=== PATIENT | male | born 1985 ===

== ENCOUNTER 2023-01-04 17:06 | Emergency (ER) | payer MEDICARE, MEDICAID, SELFPAY ==
[2023-01-04 17:09] VITALS: BP 129/75; PULSE 115; RESP 16; TEMP 36.9; O2SAT 98; BMI 23.9
--- NOTE | 2023-01-04 17:10 | ED.GENADULT ---
HPI - General Adult General Chief complaint: Dental/Oral Stated complaint: Dental pain Time Seen by Provider: 01/04/23 17:10 Source: patient, RN notes reviewed and old records reviewed Mode of arrival: ambulatory Limitations: no limitations History of Present Illness HPI narrative: 37-year-old male presents for evaluation of left-sided dental pain. He reports he has had issues on and off for 2 years and has been following with his dentist He was referred to a specialist for dental extraction in April He states over last 2 weeks his pain has worsened in the left lower most posterior molar His pain is 8/10, stabbing. Denies any fevers, chills Related Data Previous Rx's Medication Instructions Recorded amoxicillin 500 mg tablet 500 mg PO TID #21 tabs 01/04/23 tramadol 50 mg tablet 50 mg PO TID PRN severe pain 01/04/23 (scale score 7-10) #10 tabs Allergies Allergy/AdvReac Type Severity Reaction Status Date / Time banana Allergy Unconscious Verified 01/04/23 17:09 Review of Systems Constitutional: Constitutional: Denies chills and Denies fever(s) ENT: Reports facial pain and Reports mouth pain PMFSH Social History Social History Advance Directives: No Advance Directives Information Provided: No Physical Exam ED Vital Signs: Vital Signs - 24 hr 01/04/23 17:09 Temperature 98.5 F Pulse Rate 115 H Respiratory Rate 16 Blood Pressure 129/75 Pulse Oximetry 98 Oxygen Delivery Method Room Air BMI result Body Mass Index 23.9 Const General: healthy appearing, comfortable, no acute distress, alert and awake Nutritional Appearance: well nourished Orientation/consciousness: patient oriented x3 HENMT Other: Patient has a dental fracture to the left lower most posterior molar. Minimal erythema, no obvious edema or dental abscess Head: Yes normocephalic and Yes atraumatic Eyes Eyelids: Yes eyelids normal Conjunctivae: conjunctivae normal Sclerae: sclerae normal Corneas: corneas normal Pupils: Equal, round and reactive pupils present EOM: EOMs intact bilaterally Neck Neck: Yes full ROM Resp Effort & Inspection: normal respiratory effort, able to speak in complete sentences and not labored Skin General skin exam: elasticity normal Neuro General: patient oriented x3 Cranial nerves: Yes Equal, round and reactive pupils present and Yes Bilaterally intact EOM present Cognition (Neuro): normal cognition Extrem Other: Moving all extremities well without any obvious deformities Medical Decision Making Medical Decision Making MDM Narrative: 37-year-old male presents for evaluation of dental caries and left facial pain. He has a known dental fracture, likely developing infection, will treat his pain with amoxicillin and tramadol. He has outpatient follow-up already scheduled Differential Diagnosis Differential Diagnoses: The differential diagnosis associated with the presentation includes Dental pain Atypical facial pain Dental abscess Dental caries Discharge Plan Discharge Clinical Impression: Toothache, Atypical facial pain Patient Disposition: Home, Self-Care Instructions: Toothache (ED) Additional Instructions: Take the antibiotic 3 times daily for the next 7 days. Use ibuprofen and/or Tylenol for pain. You may also use [id number] Orajel Use tramadol for severe or breakthrough pain. This may make you sleepy, did not drink alcohol or drive after taking it Follow-up with your dentist as well Prescriptions: New amoxicillin 500 mg tablet 500 mg PO TID Qty: 21 0RF tramadol 50 mg tablet 50 mg PO TID PRN (Reason: severe pain (scale score 7-10)) Qty: 10 0RF
== END 2023-01-04 17:27 | disposition home or self-care (01) ==
PROVIDERS: Emergency Provider Emergency Medicine
DX: K08.89 Other specified disorders of teeth and supporting structures (principal); G50.1 Atypical facial pain
CPT/HCPCS: 99282; 99283

== ENCOUNTER 2023-02-15 13:37 | Emergency (ER) | payer MEDICARE, MEDICAID, SELFPAY ==
[2023-02-15 14:23] VITALS: BP 109/66; PULSE 60; RESP 18; TEMP 36.8; O2SAT 99; BMI 22.1
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
[2023-02-15 14:51] LABS: MANUAL DIFF FLAG NO
[2023-02-15 14:54] LABS: Appearance Urine Cloudy; Color Urine Dark Yellow; Glucose Urine UA Negative (Negative); Leukocyte Esterase Urine Small (1+) (Negative); Nitrite Urine Negative (Negative); PH 7.5 (5.0-9.0); Specific Gravity - Urine 1.025 (1.005-1.025); UMIC TRIGGER UACC YES; Urine Blood Large (3+) (Negative); Urine Ketones 15 mg/dL (Negative); Urine Protein Trace mg/dL (Neg-Trace)
[2023-02-15 14:56] LABS: Basophils Percent Auto 0.6 % (0-2); Eosinophils Percent Auto 0.4 % (0-4); Hemoglobin 14.6 g/dl (14.0-18.0); Lymphocytes Absolute Auto 2.2 X10*3/uL (1.2-4.9); Lymphocytes Percent Auto 45.7 % (20-40); Mean Corpuscular HGB Conc 33.2 g/dl (31.0-36.0); Mean Corpuscular Hemoglobin 29.6 pg (27.0-33.0); Mean Corpuscular Volume 89.1 fL (80.0-98.0); Mean Platelet Volume 10.8 fL (9.4-12.4); Monocytes Absolute Auto 0.3 X10*3/uL (0.1-1.2); Monocytes Percent Auto 5.7 % (2-11); Neutrophils Absolute Auto 2.3 x10*3/uL (2.0-8.3); Neutrophils Percent Auto 47.6 % (45-73); Platelet Count 213 X10*3/uL (160-400); Red Blood Count 4.94 X10*6/uL (4.60-5.80); White Blood Count 4.9 X10*3/uL (4.8-10.8)
[2023-02-15 15:02] LABS: Bacteria Urine None Seen (None Seen); Hyaline Casts Urine 0-2 /LPF (0-2); RBC Urine >20 /HPF (0-2); Squamous Epithelial Cell Urine 0-2 /HPF (0-2); UACC Culture Trigger YES
[2023-02-15 15:04] LABS: Anion Gap 11 (12-20); Blood Urea Nitrogen 5 mg/dL (9-16); Calcium 8.9 mg/dL (8.4-10.2); Carbon Dioxide 28 mmol/L (22-29); Chloride 108 mmol/L (96-108); Creatinine Clr Calc Pharmacy 99.4; Estimated Glomerular Filt Rate > 60; Glucose Random 87 mg/dL (60-115); Potassium 3.7 mmol/L (3.3-5.1); Sodium 143 mmol/L (135-145)
== END 2023-02-15 17:45 | disposition home or self-care (01) ==
PROVIDERS: Physician Assistant; Emergency Provider Emergency Medicine
DX: S30.812A Abrasion of penis, initial encounter (principal); R31.9 Hematuria, unspecified; X58.XXXA Exposure to other specified factors, initial encounter; Y93.9 Activity, unspecified; Y92.9 Unspecified place or not applicable; Y99.9 Unspecified external cause status
CPT/HCPCS: 36415; 80048; 81001; 85025; 87086; 99282; 99283

== ENCOUNTER 2023-03-10 05:49 | Emergency (ER) | payer MEDICARE, MEDICAID, SELFPAY ==
[2023-03-10 06:02] VITALS: BP 149/96; PULSE 112; RESP 20; TEMP 36.6; O2SAT 100; BMI 23.6
[2023-03-10 08:23] VITALS: BP 137/79; PULSE 64; RESP 18; TEMP 36.8; O2SAT 99
--- NOTE | 2023-03-10 08:23 | PC.NURSE ---
patient a&ox3, c/o 12/18 left jaw pain, vss, pt awaiting provider evaluation, call marmolejo within reach, will continue to monitor
--- NOTE | 2023-03-10 08:32 | ED_ITS ---
HPI - Dental/Oral General Chief complaint: Dental/Oral Stated complaint: dental pain Time Seen by Provider: 03/10/23 08:31 Source: patient and old records reviewed Mode of arrival: ambulatory Limitations: no limitations History of Present Illness HPI Narrative: 37 yo male with no sig PMH here with chronic L lower impacted wisdom tooth pain no abscess no fevers - has been on amoxicillin, motrin, tylenol without relief. He did have a dentist but needs to find a new one MD Complaint: tooth pain Location: Tooth # (17) Onset (ago): week(s) Duration: intermittent Severity: severe Relieving factors: nothing Exacerbating factors: chewing, cold, heat and drinking fluids Context: other Associated symptoms: gum swelling Treatment prior to arrival: topical analgesic, oral analgesic and other Related Data Previous Rx's Medication Instructions Recorded amoxicillin 500 mg tablet 500 mg PO TID #21 tabs 01/04/23 amoxicillin 875 mg-potassium 1 tab PO BID #14 tabs 03/10/23 clavulanate 125 mg tablet hydrocodone 5 mg-acetaminophen 325 1 tab PO Q6H PRN pain #10 tabs 03/10/23 mg tablet Allergies Allergy/AdvReac Type Severity Reaction Status Date / Time banana Allergy Unconscious Verified 03/10/23 06:01 Review of Systems Review of Systems: Constitutional : No Fever, No Chills ENT/Mouth : No swallowing difficulty, no change in voice, positive dental pain, positive jaw pain, no facial swelling Eyes: No Eye Pain, No Swelling Cardiovascular : No Chest Pain, No SOB Respiratory : No Cough, No Sputum Gastrointestinal : No Nausea, No Vomiting, No Diarrhea Genitourinary : No Dysuria Musculoskeletal : No Myalgias Skin : No rash Neuro : No Weakness, No Numbness, No Headache PMFSH Past Medical History Source: old records reviewed Medical History Toothache Social History Social History (Updated 03/10/23 @ 08:34 by Yuko Huggins DO) Patient Tobacco Use Status: Tobacco use Unknown Physical Exam Vital Signs: Vital Signs: Last Vital Signs Temp 98.2 F 03/10/23 08:23 Pulse 64 03/10/23 08:23 Resp 18 03/10/23 08:23 BP 137/79 03/10/23 08:23 Pulse Ox 99 03/10/23 08:23 O2 Del Method Room Air 03/10/23 08:23 BMI result Body Mass Index 23.6 Appearance: Alert. Oriented X3. No acute distress. Eyes: Pupils equal, round and reactive to light. ENT: Pharynx normal. no trismus L lower molar impacted decay on top ?exposed root no fluctuance or abscess no sublingual or submandibular ttp / swelling Neck: Normal inspection. Neck supple. CVS: Normal heart rate and rhythm. Pulses normal. Respiratory: No respiratory distress. Breath sounds normal. Abdomen: Soft and nontender. Skin: Skin warm and dry. Normal skin color. Normal skin turgor. Extremities: No lower extremity edema. Neuro: Oriented X 3. No motor deficit. No sensory deficit. Medical Decision Making Medical Decision Making MDM Narrative: 37 yo male with chronic L left lower impacted wisdom tooth here with decay and ?exposed root there is no abscess no trismus no sublingual or submandibular swelling he is already on tramadol, motrin and amoxicillin without relief. He will be given short course of hydrocodone, switch to augmentin and refer to dentist Differential Diagnosis Differential Diagnoses: The differential diagnosis associated with the prese ntation includes toothache, impacted wisdom tooth Admission/Observation Consideration of admission/observation: Escalation of care including admission/observation considered no signs of deeper space infection can be managed as outpatient External Record Review External record reviewed: Inpatient record Prescription Management I considered prescription management with: Pain Medication and Antibiotic Discharge Plan Discharge Clinical Impression: Toothache Patient Disposition: Home, Self-Care Instructions: Toothache (ED) Additional Instructions: return for worsening pain, fevers, facial swelling or any other concerns. please follow up with a dentist STOP TAKING AMOXICILLIN AND START NEW ANTIBIOTIC On amoxicillin-clavulanate, softer bowel movements are to be expected. Call your provider if you move your bowels more than 4 times a day, your bowel movements are almost all liquid, or you get a rash.? Prescriptions: New amoxicillin-pot clavulanate 875-125 mg tablet 1 tab PO BID Qty: 14 0RF hydrocodone-acetaminophen 5-325 mg tablet 1 tab PO Q6H PRN (Reason: pain) Qty: 10 0RF Rx Instructions: partial fill okay; Partial Fill upon patient request. Discontinued tramadol 50 mg tablet 50 mg PO TID PRN (Reason: severe pain (scale score 7-10)) Qty: 10 0RF No Action amoxicillin 500 mg tablet 500 mg PO TID Qty: 21 0RF
== END 2023-03-10 08:47 | disposition home or self-care (01) ==
PROVIDERS: Emergency Provider Emergency Medicine
DX: K08.89 Other specified disorders of teeth and supporting structures (principal)
CPT/HCPCS: 99283; 99284

== ENCOUNTER 2023-03-17 16:13 | Emergency (ER) | payer MEDICARE, MEDICAID, SELFPAY ==
[2023-03-17 16:31] VITALS: BP 123/82; BP 150/102; PULSE 102; PULSE 111; RESP 18; TEMP 37.1; O2SAT 97; O2SAT 99; BMI 22.6
--- NOTE | 2023-03-17 16:56 | ED.GENADULT ---
HPI - General Adult General Chief complaint: Dental/Oral Stated complaint: tooth pain Time Seen by Provider: 03/17/23 16:50 Source: patient Mode of arrival: ambulatory Limitations: no limitations History of Present Illness HPI narrative: 37 yold male presents to the ED for left wisdom tooth for a couple of days. Patient denies any facial sweling, neck sweling, fever, chills, nausea, vomitting, headache, or recent trauma. Related Data Previous Rx's Medication Instructions Recorded amoxicillin 500 mg tablet 500 mg PO TID #21 tabs 01/04/23 amoxicillin 875 mg-potassium 1 tab PO BID #14 tabs 03/10/23 clavulanate 125 mg tablet hydrocodone 5 mg-acetaminophen 325 1 tab PO Q6H PRN pain #10 tabs 03/10/23 mg tablet amoxicillin 875 mg-potassium 1 tab PO Q12H 10 days #20 tabs 03/17/23 clavulanate 125 mg tablet naproxen 500 mg tablet 500 mg PO BID PRN pain 7 days #14 03/17/23 tabs Allergies Allergy/AdvReac Type Severity Reaction Status Date / Time banana Allergy Unconscious Verified 03/10/23 06:01 Review of Systems Review of Systems: left wisdom tooth pain Yes all other systems are reviewed and are negative PMFSH Past Medical History Onset Date is defined in the Problem List Problems that require an onset date and time if occurred within 24 hrs of arrival to the ED Aortic Dissection and Rupture; Neurologic impairment; Cardiopulmonary Arrest; Endotracheal Intubation; Insertion or Replacement of Mechanical Circulatory Assist Device Medical History Toothache Social History Social History (Updated 03/10/23 @ 08:34 by Yuko Huggins DO) Patient Tobacco Use Status: Tobacco use Unknown Advance Directives: No Advance Directives Information Provided: No Physical Exam ED Vital Signs: Vital Signs - 24 hr 03/17/23 16:31 Temperature 98.7 F Pulse Rate 111 H Respiratory Rate 18 Blood Pressure 123/82 Pulse Oximetry 97 Oxygen Delivery Method Room Air BMI result Body Mass Index 22.6 Const General: cooperative, healthy appearing, comfortable, no acute distress, well developed, alert, awake and Physically active Orientation/consciousness: oriented to person, oriented to place, oriented to time and patient oriented x3 HENMT Other: negative for any facial swelling, neck swelling, drooling, change in voice, or hoarsness Head: Yes normal to inspection, Yes No palpable skull fracture present, Yes normocephalic and Yes atraumatic Teeth image: 1. cracked with yellow collection. negative for trismus. negative for gum swelling, fluctlunace, erythema Eyes General: appearance normal, both eyes and all related structures Neck Neck: Yes normal visual inspection, Yes full ROM, Yes no lymphadenopathy, Yes no meningeal signs, Yes trachea midline, Yes supple, No anterior neck swelling and No tender Chest Chest palpation & inspection: normal inspection of the chest and normal palpation of entire chest wall Resp Effort & Inspection: normal respiratory effort and able to speak in complete sentences Auscultation: clear to auscultation bilaterally Cardio Jugular venous distension: no JVD Heart sounds: S1 normal heart sound present and S2 normal heart sound present GI Inspection: Yes normal to inspection Palpation (GI): Soft to palpation, not firm, nontender, no guarding and not rigid General: Yes no CVA tenderness Back/Spine/Pelvis Back: no CVA tenderness and No back tenderness Skin General skin exam: no rashes or lesions noted, elasticity normal and turgor normal Neuro General: oriented to person, oriented to place, oriented to time, patient oriented x3, gait normal, tone normal, moves all extremities, Normal light touch and pain sensation, no meningeal signs, no focal motor deficits, CN's II-XI intact bilaterally and normal sensation to monofilament Extrem General: Yes normal to inspection, Yes full ROM, Yes capillary refill normal and Yes normal exam except as noted Psych Appearance: grossly normal, well kempt and not disheveled Course Course Course Narrative: RME: 37 yold male presents to the ED for left wisdom tooth pain. has yellow collection. no facial/neck swelling. Medical Decision Making Medical Decision Making MDM Narrative: 37 yold male presents to the ED for left lower wisdom tooth pain. Patient denies any facial swelling, neck swelling, fever, chills, recent trauma, drooling, trismus, hoarsness change in voice, or recent dental work. NOt suspecting génesis angina, peritonsilalr abscess, retropharygneal absces, or gum abscess. Differential Diagnosis Differential Diagnoses: The differential diagnosis associated with the presentation includes (toothache, dental carries, ) External Record Review External record reviewed: Other (prior visists) Prescription Management I considered prescription management with: Pain Medication and Antibiotic Discharge Plan Discharge Clinical Impression: Toothache Patient Disposition: Home, Self-Care Instructions: Toothache (ED) Additional Instructions: Return to the ED immediately for any facial swelling, neck swelling, drooling, change in voice, chest pain, shortness of breath, fever, chills, worsening toothache, or any other concerning symptoms. Please follow-up with your dentist. Prescriptions: New amoxicillin-pot clavulanate 875-125 mg tablet 1 tab PO Q12H 10 Days Qty: 20 0RF naproxen 500 mg tablet 500 mg PO BID PRN (Reason: pain) 7 Days Qty: 14 0RF No Action amoxicillin 500 mg tablet 500 mg PO TID Qty: 21 0RF amoxicillin-pot clavulanate 875-125 mg tablet 1 tab PO BID Qty: 14 0RF hydrocodone-acetaminophen 5-325 mg tablet 1 tab PO Q6H PRN (Reason: pain) Qty: 10 0RF Rx Instructions: partial fill okay; Partial Fill upon patient request. Stand Alone Forms: Work/School Release Interventions: ED Discharge Assessment Last Done: 03/17/23 17:11 Discharge Date/Time: 03/17/23 17:12 Print Language: Trinidadian
== END 2023-03-17 17:12 | disposition home or self-care (01) ==
PROVIDERS: Emergency Provider Student in an Organized Health Care Education/Training Program
DX: K08.89 Other specified disorders of teeth and supporting structures (principal)
CPT/HCPCS: 99282; 99283

== ENCOUNTER 2023-03-30 21:13 | Emergency (ER) | payer MEDICARE, MEDICAID, SELFPAY ==
[2023-03-30 21:15] VITALS: BP 123/89; PULSE 62; RESP 18; TEMP 36.9; O2SAT 99; BMI 22.3
--- NOTE | 2023-03-30 21:55 | ED_ITS ---
HPI - General Adult General Chief complaint: Dental/Oral Stated complaint: painful tongue, dental extraction 03/27 Time Seen by Provider: 03/30/23 21:55 Source: patient Mode of arrival: ambulatory Limitations: no limitations History of Present Illness HPI narrative: 37-year-old male with no significant past medical history presents emergency department with complaints of burning to his tongue. He states he had a recent dental extraction on 03/27 and sustained a laceration to the left side of his tongue during the procedure. He states he began using saltwater rinses in addition to mouthwash the following day. He states yesterday, 03/29/2023 that is symptoms of burning tongue began. He describes the pain as if the tongue is on fire like someone is pulling a hot sauce on it. He states he used mouthwash 4 times yesterday. He denies any oral swelling or edema, trismus or jaw pain, dysphagia, aphasia, or change in phonation, fever or chills Pertinent positives and negatives discussed in HPI Related Data Previous Rx's Medication Instructions Recorded amoxicillin 500 mg tablet 500 mg PO TID #21 tabs 01/04/23 amoxicillin 875 mg-potassium 1 tab PO BID #14 tabs 03/10/23 clavulanate 125 mg tablet hydrocodone 5 mg-acetaminophen 325 1 tab PO Q6H PRN pain #10 tabs 03/10/23 mg tablet amoxicillin 875 mg-potassium 1 tab PO Q12H 10 days #20 tabs 03/17/23 clavulanate 125 mg tablet naproxen 500 mg tablet 500 mg PO BID PRN pain 7 days #14 03/17/23 tabs Allergies Allergy/AdvReac Type Severity Reaction Status Date / Time banana Allergy Unconscious Verified 03/10/23 06:01 Review of Systems 2 Review of Systems: Yes all other systems are reviewed and are negative PMFSH Past Medical History Attestation statement: The following information was validated with the patient. Onset Date is defined in the Problem List Problems that require an onset date and time if occurred within 24 hrs of arrival to the ED Aortic Dissection and Rupture; Neurologic impairment; Cardiopulmonary Arrest; Endotracheal Intubation; Insertion or Replacement of Mechanical Circulatory Assist Device Medical History Toothache Social History Social History (Updated 12/31/23 @ 08:34 by Yuko Huggins DO) Patient Tobacco Use Status: Tobacco use Unknown Advance Directives: No Advance Directives Information Provided: No Physical Exam ED Vital Signs: Vital Signs - 24 hr 03/30/23 21:15 Temperature 98.5 F Pulse Rate 62 Respiratory Rate 18 Blood Pressure 123/89 Pulse Oximetry 99 Oxygen Delivery Method Room Air BMI result Body Mass Index 22.3 Nursing notes and vital signs reviewed. GENERAL APPEARANCE: A&0 x 4, generally well appearing, no acute distress HENMT: Normal to inspection, atraumatic, face symmetrical. Normal external ears, nose, and oropharynx clear. 5 mm healing laceration noted on left lateral tongue with no evidence of infection. Tip of tongue with erythema noted and no signs of edema EYE: PERRLA, EOM intact, structures appear normal NECK: Supple without stiffness or restricted ROM. HEART: Normal rate and regular rhythm, normal S1/S2, no M/R/G LUNGS: LS CTA, moving air well. Able to speak in complete sentences. No crackles, wheezes, or rhonchi auscultated BACK: No CVAT, no obvious deformity EXTREMITIES: Moving all extremities without difficulty. Normal capillary refill. NEUROLOGICAL: Alert and oriented, moving all 4 extremities with equal strength. CN not formally tested but appearing grossly intact. Observed to ambulate with normal gait. Cognition normal SKIN: Warm and dry without any lesions, rash, or visible sores [facility] Mouth/tongue images: 2 1. Healing laceration 2. Erythema Medical Decision Making Medical Decision Making MDM Narrative: Old records reviewed and patient assessed in the emergency department with no signs of acute distress. Healing laceration noted on left lateral aspect of tongue. Excoriation or irritation noted on tip of tongue. Patient educated to discontinue use of mouthwash and avoid acidic or spicy foods. Patient educated that he may use [id number] Cepacol lozenges or spray for management of discomfort in addition to Tylenol and/or ibuprofen. Tylenol ordered here in the emergency department. Patient educated to follow-up with his dentist in addition to his primary care provider for further evaluation as needed. Patient is safe for discharge at this time with plan for [id number] Tylenol and/or NSAID such as ibuprofen or naproxen for fever/discomfort with dosing as per packaging. HPI, PE, diagnostics, and plan discussed with patient and family with no unanswered questions at this time. Strict return precautions given to return to the emergency department with new, worsening, or concerning emergent symptoms. Differential Diagnosis Differential Diagnoses: The differential diagnosis associated with the presentation includes But not limited to burning tongue syndrome, hairy oral leukoplakia, thrush, infection, irritation, malignancy Discharge Plan Discharge Clinical Impression: Tongue disorder Patient Disposition: Home, Self-Care Additional Instructions: Your seen in the emergency department for concerns of a laceration on the left side of your tongue as well as burning to the tongue. The laceration appears to be healing with no signs of infection. There appears to be irritation at the tip of the tongue this is most likely due to the alcohol in mouthwashes use have been using it several times per day. It is recommended that you discontinue use of mouthwash, avoid acidic or spicy foods. You may use [id number] medications such as Cepacol for pain. You are safe for discharge at this time with plan for management of fever or discomfort with [id number] Tylenol and/or NSAID such as ibuprofen or naproxen with dosing as per packaging. Please return to the emergency department with new, worsening, or concerning emergent symptoms. Recommended to follow-up with your primary care provider in 24-48 hours for further treatment and management. Thank you for choosing [facility]. Prescriptions: No Action amoxicillin 500 mg tablet 500 mg PO TID Qty: 21 0RF amoxicillin-pot clavulanate 875-125 mg tablet 1 tab PO BID Qty: 14 0RF hydrocodone-acetaminophen 5-325 mg tablet 1 tab PO Q6H PRN (Reason: pain) Qty: 10 0RF Rx Instructions: partial fill okay; Partial Fill upon patient request. amoxicillin-pot clavulanate 875-125 mg tablet 1 tab PO Q12H 10 Days Qty: 20 0RF naproxen 500 mg tablet 500 mg PO BID PRN (Reason: pain) 7 Days Qty: 14 0RF Referrals: [facility] [Provider Group] [facility] [Provider Group] [facility] [Provider Group] Print Language: Indonesian
[2023-03-30 22:33] VITALS: BP 134/85; PULSE 61; RESP 14; O2SAT 99
[2023-03-30] MEDS: Acetaminophen 325 MG TABLET 650 MG PO (22:35)
== END 2023-03-30 22:40 | disposition home or self-care (01) ==
PROVIDERS: Emergency Provider Emergency Medicine Emergency Medical Services
DX: K14.9 Disease of tongue, unspecified (principal); K14.6 Glossodynia
CPT/HCPCS: 99283; 99284